=== PATIENT | male | born 1980 | race Caucasian/White ===

== ENCOUNTER → 2022-01-30 | Outpatient (CLI) | payer OTHER, SELFPAY ==
--- NOTE | 2022-01-30 15:33 | CT_ITS ---
STUDY: CTA CHEST REASON FOR EXAM: Male, 41 years old. PULMONARY EMBOLISM? SOB PATIENT WEIGHT 672 -- ON BLOOD THINNERS RADIATION DOSAGE (If Supplied By Facility): CTDIvol = ( 22.44 ) mGy, DLP = ( 959.30 ) mGycm TECHNIQUE: The examination was performed with the intravenous administration of 100 ML ISOVUE 370. Post-processing of the angiographic images was performed, with multiplanar reformation and 3D reconstruction. Individualized dose optimization techniques were used for this CT. COMPARISON: None. FINDINGS: Within the right lower lobe superior segmental artery there is a filling defect visualized on series 2 image 158 consistent with pulmonary embolus. On the left within the distal aspect of the left main pulmonary artery anteriorly there is a filling defect visualized 0.87 cm in diameter. Study is suboptimal due to patient''s weight and bolus timing. Normal thoracic aorta and visualized great vessels. There is no demonstrated aortic dissection. Normal heart and pericardium. Normal mediastinum. Normal hilar regions. Normal visualized trachea and bronchi. The lungs are well expanded. Mild bibasilar dependent atelectasis. Normal pleura. Normal chest wall structures. Normal osseous structures. Normal visualized upper abdomen. CT/CTA Chest W/WO Contrast IMPRESSION: Filling defects within the right lower lobe or superior segmental artery and within the distal aspect of the left main pulmonary artery suspicious for pulmonary embolus. Mild bibasilar dependent atelectasis. Electronically Signed: Farhad Velasco MD, LINDA at 16:35 EDT ,
[2022-02-02 08:12] LABS: CREATININE FINGERSTICK 1.11 mg/dL (0.70-1.30); EGFR FINGERSTICK > 60 mL/min (>60)
== END | disposition home or self-care (01) ==
LOC: CT 15:31
PROVIDERS: PCP Family Medicine
DX: I26.99 Other pulmonary embolism without acute cor pulmonale (principal)
CPT/HCPCS: 71275; Q9967

== ENCOUNTER 2022-10-26 09:01 | Emergency (ER) | payer OTHER, SELFPAY ==
[2022-10-26] VITALS (7 sets, daily range): BP systolic 147–167; BP diastolic 81–98; PULSE 71–96; RESP 16–22; TEMP 36.2; O2SAT 85–98; BMI 80.5
--- NOTE | 2022-10-26 | RAD_ITS ---
INDICATION: Shortness of breath EXAMINATION/TECHNIQUE: X-RAY - XR Chest 1 View COMPARISON: No prior examinations are available for comparison. FINDINGS: LINES/DEVICES: None. LUNGS: Mild elevation of right hemidiaphragm. No focal infiltrate is seen. No evidence of pleural effusions. MEDIASTINUM AND CARDIOVASCULAR STRUCTURES: Cardiac silhouette not enlarged. Central airways and mediastinal contour are unremarkable. BONES AND SOFT TISSUES: Unremarkable. RAD/Chest 1 View (Portable) IMPRESSION: No radiographic evidence of acute cardiopulmonary disease. Electronically Signed: Tommy Moraes MD at 12:08 EDT ,
--- NOTE | 2022-10-26 09:03 | ED.RN ---
PT ARRIVES TO TRIAGE. PT STATES HAS PE, SOB. PT ROOM AIR SATURATION OF 88
--- NOTE | 2022-10-26 09:13 | ED.VIS.DYS ---
HPI History of Present Illness Chief Complaint: Shortness of Breath PFSH PFSH Home Medications apixaban 5 mg tablet (Eliquis) 5 mg PO BID 10/26/22 [History Last Taken Unknown] divalproex 250 mg tablet,extended release 24 hr (Depakote ER) 250 mg PO DAILY 10/26/22 [History Last Taken Unknown] lisinopril 20 mg-hydrochlorothiazide 12.5 mg tablet (Zestoretic) 1 tab PO DAILY 10/26/22 [History Last Taken Unknown] omeprazole 40 mg capsule,delayed release 40 mg PO DAILY 10/26/22 [History Last Taken Unknown] paroxetine HCl 40 mg tablet 40 mg PO DAILY 10/26/22 [History Last Taken Unknown] torsemide 10 mg tablet 10 mg PO DAILY 10/26/22 [History Last Taken Unknown] Allergy/AdvReac Type Severity Reaction Status Date / Time bupropion [From Wellbutrin] AdvReac PSYCH Verified 10/26/22 09:11 Social History Smoking Status: Current every day smoker tobacco type: cigarettes EXAM Physical Exam Const Vital Signs: 10/26/22 09:02 10/26/22 09:05 10/26/22 09:05 Temperature 97.1 F L Temperature Source Temporal Pulse Rate 96 Respiratory Rate 16 Respiratory Effort Short of Breath Respiratory Pattern Normal Blood Pressure 167/92 H Blood Pressure Mean 117 Pulse Ox 98 97 Oxygen Delivery Method Room Air Room Air Room Air 10/26/22 12:02 10/26/22 12:06 10/26/22 12:15 Temperature Temperature Source Pulse Rate 77 72 Respiratory Rate 22 H 22 H Respiratory Effort Respiratory Pattern Blood Pressure 160/84 H 156/81 H Blood Pressure Mean 109 106 Pulse Ox 85 93 93 Oxygen Delivery Method Room Air Room Air Room Air 10/26/22 13:37 Temperature Temperature Source Pulse Rate 71 Respiratory Rate 20 H Respiratory Effort Respiratory Pattern Blood Pressure 147/98 H Blood Pressure Mean Pulse Ox 95 Oxygen Delivery Method MDM MDM MDM Narrative Medical decision making narrative: HISTORY OF PRESENT ILLNESS: 42-year-old male here with acute onset of shortness of breath and near syncope. Occurred prior to arrival. States has history of PE. States been compliant with Eliquis. Last dose was this morning. Denies any bleeding diathesis, melena medic easier hemoptysis. Did note some chest pain that was exertional. Denies history of ACS but notes he had heart strain during his last PE. Denies any vomiting. Denies any recent illness or cough. REVIEW OF SYSTEMS: Pertinent positives: Shortness of breath, near syncope, chest pain Pertinent negatives: Syncope, focal numbness or weakness PHYSICAL EXAM: Nursing triage notes reviewed, Vital signs reviewed Constitutional: please see mdm HENT: MMM Eyes: Pupils equal round and reactive to light, Extraocular muscles intact Neck: No stridor, no JVD, full neck ROM Lungs: Clear to auscultation, No wheezing or rales. No increased work of breathing, no conversational dyspnea, no accessory muscle use, no nasal flaring. No respiratory distress noted Heart: Regular rate and rhythm, No murmurs, No rubs and No gallops, 2+ distal pulses (radial, femoral, posterior tibial) in all extremities Abdomen: Soft, there is no tenderness, rigidity, rebound or guarding, no obvious peritoneal signs, no palpable pulsatile abdominal masses, no auscultated abdominal bruit : No CVAT Extremities: No edema Neuro: No focal neurological deficits, cranial nerves II through XII intact, 5/5 strength in all extremities. Intact sensation to light touch in all extremities, 2+ reflexes bilateral patella tendons. Normal gait. No ataxia. Skin: No rash or lesions noted MEDICAL DECISION MAKING: Chief Complaint: Shortness of breath External records reviewed: No documented imaging or echocardiograms noted in the chart Factors affecting care: History of VTE Social determinants of health: none History obtained from others: The patient's Consults: none ALL IMAGES (IF OBTAINED) HAVE BEEN PERSONALLY REVIEWED AND INTERPRETED BY MYSELF. EKG with normal sinus rhythm, left axis deviation, prolonged QT, no STEMI Right lower quadrant duplex ultrasound negative for acute DVT by coffee roaster helper prelim report Troponin is negative, no evidence of myocardial ischemia CBC without leukocytosis, severe anemia, no thrombocytopenia. D-dimer is negative making VTE less likely BNP within normal limits making heart failure less likely VBG without evidence of respiratory acidosis, CO2 retention [facility] Narrative: Patient was reported to be hypoxic in the waiting room however she was hemodynamically stable, afebrile, nontoxic-appearing. Is not hypoxic. No increased work of breathing and no conversational dyspnea. His lungs were clear although limited by body habitus I considered the following differential diagnosis: PE, arrhythmia, ACS, anemia, electrolyte abnormalities, dissection I obtained a broad lab and imaging work-up to further elucidate the etiology the patient complaints. Low suspicion for PE or DVT with a negative D-dimer negative right lower extremity ultrasound. Additionally there is no evidence of heart strain with negative troponin x2 and negative BNP.. No evidence of ACS with a normal EKG and negative troponins x2. No cervical anemia or electrolyte abnormalities noted. Patient ambulated and dropped to 90% with associated tachycardia. It is my impression that the patient's symptoms today are associated with obesity hypoventilation syndrome. I Did offer the patient observation in the hospital however he refused stating he want to follow with his primary care physician and materials manager as an outpatient. He states he thinks his weight is a big issue and would like to start losing weight. He was alert and oriented x3 and had capacity to make his own medical decisions. The patient and/or family, caregivers express understanding. The patient and/or family, caregivers agrees with the plan. Total critical care time today provided was at least 0 minutes. This excludes separately billable procedures. Critical care time (if documented) is secondary to the patient having high probability of clinically significant/life threatening deterioration in the patient's condition which required my urgent intervention. Shared decision making: I will have a discussion with the patient and or visitors regarding risk/benefits of further testing or admission. They will be made aware of of the risk/benefits inherent in this decision they will be given the opportunity to voice understanding. Lab Data Attestation: I reviewed the patient's lab results. Labs: Laboratory Results - last 24 hr 10/26/22 10/26/22 10/26/22 09:05 10:00 11:25 WBC 6.7 RBC 4.82 Hgb 13.3 Hct 43.3 MCV 89.8 MCH 27.6 MCHC 30.7 L RDW Std Deviation 46.4 H RDW Coeff of Ward 14.0 Plt Count 237 MPV 9.0 Immature Gran % (Auto) 0.600 Neut % (Auto) 57.2 Lymph % (Auto) 30.8 Thayer % (Auto) 7.5 Eos % (Auto) 3.3 Baso % (Auto) 0.6 Absolute Neuts (auto) 3.8 Absolute Lymphs (auto) 2.06 Nucleated RBC % 0 D-Dimer Quant (PE/DVT) 0.46 Sodium 142 Potassium 3.9 Chloride 114 H Carbon Dioxide 22.0 Anion Gap 6 BUN 19 H Creatinine 0.96 Estim Creat Clear Calc 138.89 Est GFR (MDRD) Af Amer 111 Est GFR (MDRD) Non-Af 92 BUN/Creatinine Ratio 19.8 Glucose 108 H Calcium 8.9 Troponin I High Sens 8 8 B-Natriuretic Peptide 48.9 ABG Data ABG results: ABG 10/26/22 11:39 Specimen Type СВЕТЛАНА VBG pH 7.35 VBG pO2 40 VBG HCO3 25 VBG Total CO2 26 VBG O2 Sat (Calc) 72 H VBG Base Excess -1 POC Mix VBG pCO2 Pt Tmp 45.3 O2 Delivery Device Room Air Radiography Diagnostic Testing: Clinical Impression(s) from Imaging Studies Chest X-Ray 10/26/22 00:00 IMPRESSION: No radiographic evidence of acute cardiopulmonary disease. Electronically Signed: Tommy Moraes MD at 12:08 EDT , Venous Doppler Study 10/26/22 09:22 Interpretation Summary This is a technically difficult and limited study secondary to body habitus and intolerance to compression No evidence for acute deep venous thrombosis right common femoral, femoral, popliteal, tibioperoneal trunk and posterior tibial veins where can be visualized. Patent and compressible right great saphenous vein Ordering Physician: Edy Marley Performed By: Diana Vick RVT Discharge Plan Triage Chief Complaint: Shortness of Breath ED Provider: Edy Marley Dx/Rx/DC Orders Clinical Impression: Near syncope, Hypoventilation associated with obesity syndrome Instructions: Causes of Syncope, Weight Management: Getting Started Prescriptions: No Action divalproex [Depakote ER] 250 mg tablet extended release 24 hr 250 mg PO DAILY lisinopril-hydrochlorothiazide [Zestoretic] 20-12.5 mg tablet 1 tab PO DAILY paroxetine HCl 40 mg tablet 40 mg PO DAILY torsemide 10 mg tablet 10 mg PO DAILY Eliquis 5 mg tablet 5 mg PO BID omeprazole 40 mg capsule,delayed release(DR/EC) 40 mg PO DAILY Primary Care Provider: Wilbert Palomo Referrals: Wilbert Palomo MD [Primary Care Provider] - Activity Restrictions/Additional Instructions: Thank you for trusting us with your care today! Please take Tylenol (2 pills, 650 mg), ibuprofen (2 pills, 400 mg) every 6 hours as needed for pain and fever control. Please start tracking your food daily to encourage weight loss. You can use a free polo like [employer]. Please begin by logging all of your oral food and calorie intake including sugar sweetened beverages for the next 3 to 5 days. After this time you can then change the proportion of protein, fat, carbohydrates. A higher protein diet a lower carbohydrate diet and a lower fat diet will promote weight loss. Please return to the emergency department if your symptoms change or worsen. Please follow with your primary care physician for further outpatient evaluation and management. Disposition Disposition: Home, Self Care Discharge Date/Time: 10/26/22 13:39
--- NOTE | 2022-10-26 09:19 | NURSING ---
NO OLD EKGS
[2022-10-26 09:22] LABS: Absolute Lymphocyte Count 2.06 X10^3/uL (0.83-4.51); Absolute Neutrophil Count 3.8 X10^3/uL (2.0-7.7); Basophil# 0.04 X10^3/uL; Basophil% 0.6 % (0-1); Eosinophil# 0.22 X10^3/uL; Eosinophils% 3.3 % (0-5); Hematocrit 43.3 % (40-54); Hemoglobin 13.3 g/dL (13.0-16.5); Lymphocyte # 2.06 X10^3/ul (0.83-4.51); Lymphocyte % 30.8 % (19-41); Mean Corp Hgb Conc 30.7 g/dL (32-36); Mean Corpuscular Hgb 27.6 pg (27.0-32.0); Mean Corpuscular Volume 89.8 fL (80-94); Monocyte% 7.5 % (0-10); NRBC Flagged by Analyzer 0 % (0-5); Neutrophil # 3.83 X10^3/uL (2.7-7.7); Neutrophil % 57.2 % (47-70); Platelet Count 237 K/mm3 (150-450); RBC Distribution Width SD 46.4 fl (35.1-43.9); Red Blood Count 4.82 M/mm3 (4.6-6.2); White Blood Count 6.7 K/mm3 (4.4-11.0)
--- NOTE | 2022-10-26 09:22 | VDLE_ITS ---
Reason For Study: Right leg swelling RIGHT GSV is normal. CFV appears patent with color. Normal venous flow noted with augmentation. FV prox is compressible. Remaining FV visualized with color only and appears patent. Normal venous flow noted with augmentation. POP V is compressible, spontaneous, phasic, competent and demonstrates normal augmentation. T/P Trunk is compressible PTV at ankle is compressible Unable to visualized PTV prox-distal, and Peroneal veins throughout. Procedure This is a venous duplex using B-mode, color flow and spectral Doppler. Exam performed portable in ED. Technically difficult study due to patient body habitus. Patient unable to tolderate compression. Relied on color to visualize most veins. A preliminary report was called and/or faxed to Dr. Marley. VL/Venous Duplex US, Unilateral Interpretation Summary This is a technically difficult and limited study secondary to body habitus and intolerance to compression No evidence for acute deep venous thrombosis right common femoral, femoral, pop liteal, tibioperoneal trunk and posterior tibial veins where can be visualized. Patent and compressible right great saphenous vein Ordering Physician: Edy Marley Performed By: Diana Vick RVT
[2022-10-26 09:41] LABS: Anion Gap 6 (5-15); BUN 19 mg/dL (7-18); BUN/Creat Ratio 19.8 RATIO (10-20); Calcium,Total 8.9 mg/dL (8.5-10.1); Chloride 114 mmol/L (98-107); Creatinine, Serum 0.96 mg/dL (0.70-1.30); EST Glomerular Filtration Rate 92 mL/min (>60); Est Glom Filt Rate - Afr Amer 111 mL/min (>60); Estimated Creatinine Clearance 138.89 ml/min; Glucose 108 mg/dL (74-106); Potassium 3.9 mmol/L (3.5-5.1); Sodium Level 142 mmol/L (136-145); Troponin-I HS 8 pg/mL (3.0-78.0)
[2022-10-26 09:48] LABS: BNP,B-Type NATRIURETIC PEPTIDE 48.9 pg/mL (0-100)
[2022-10-26 10:26] LABS: D-Dimer Quantitative (DVT/PE) 0.46 FEU/ug/m (0.27-0.49)
--- NOTE | 2022-10-26 10:45 | EKG12_ITS ---
Test Reason : SOB Blood Pressure : / mmHG Vent. Rate : 086 BPM Atrial Rate : 086 BPM P-R Int : 184 ms QRS Dur : 110 ms QT Int : 386 ms P-R-T Axes : 019 -21 004 degrees QTc Int : 461 ms Normal sinus rhythm Normal ECG Confirmed by JINA MUSTAFA, LITA ([id number]), staff editor SHAQUILLE OCASIO ([id number]) on 10/28/2022 10:11:11 AM Referred By: DONALD Confirmed By:LITA MURO MD
[2022-10-26 11:43] LABS: Blood Gas Specimen Type VEN; O2 Delivery Device Room Air; VBG BASE EXCESS -1 mmol/L (-1.0-3.5); VBG Bicarbonate 25 mmol/L (22-26); VBG PO2 40 mmHg (25-40); VBG SO2 72 % (50-70); VBG TCO2 26 mmol/L (23-33); VBG pCO2 45.3 mmHg (41-51); VBG pH 7.35 (7.32-7.42)
[2022-10-26 11:55] LABS: Troponin-I HS 8 pg/mL (3.0-78.0)
== END 2022-10-26 13:39 | disposition home or self-care (01) ==
PROVIDERS: Emergency Provider Emergency Medicine; PCP Family Medicine; Visit Provider Emergency Medicine
DX: R55 Syncope and collapse (principal); E66.2 Morbid (severe) obesity with alveolar hypoventilation; R06.02 Shortness of breath; F17.210 Nicotine dependence, cigarettes, uncomplicated; Z79.01 Long term (current) use of anticoagulants; Z79.899 Other long term (current) drug therapy
CPT/HCPCS: 71045; 80048; 82803; 83880; 84484; 85025; 85379; 87428; 93005; 93971; 99284; J7030; A4216